=== PATIENT | female | born 1965 ===

== ENCOUNTER 2022-04-21 06:30 | Day surgery (SDC) | payer OTHER ==
[~2022-04-21] VITALS: Ht 149.9 cm; Wt 75.7 kg
[~2022-04-21 06:30] MED LIST: ALENDRONATE SOD70 MG PO; COZAAR100 MG PO; HYDROCHLOROTHIA25 MG PO; HYDROXYCHLOROQUINE PO; LANTUS SOL100 UNIT/1; LOSARTAN POTAS100 MG; METHOT PO; SYNTHROID125 MCG; SYNTHROID125 MCG PO; [UNRECOGNIZED DRUG - OTHER] PO
[2022-04-21] MEDS ORDERED: PERCOCET 5-3251 EACH PO (10:37)
== END 2022-04-21 14:45 | disposition home or self-care (01) ==
LOC: CIR.AMB 06:30
PROVIDERS: ATTEND Surgery
DX: D35.1 Benign neoplasm of parathyroid gland (principal); I10 Essential (primary) hypertension; Z88.6 Allergy status to analgesic agent; Z86.16 Personal history of COVID-19; Z87.891 Personal history of nicotine dependence; Z20.822 Contact with and (suspected) exposure to COVID-19; Z91.013 Allergy to seafood